=== PATIENT | male | born 1990 | race Caucasian/White ===

== ENCOUNTER 2021-11-26 00:20 | Emergency (ER) | payer MEDICAID ==
[~2021-11-26] VITALS: Ht 175.3 cm; Wt 106.6 kg
[2021-11-26 00:29] VITALS: BP 138/67
[2021-11-26] MEDS ORDERED: MORPHINE SULFATE 4 MG/ML SYR IM ONE (00:35)
[2021-11-26] MEDS ORDERED: KETOROLAC 60 MG/2 ML VIAL IM ONE (00:35)
[2021-11-26] MEDS ORDERED: ALLO100T21 PO (01:44)
[2021-11-26] MEDS ORDERED: COLC-30 PO (01:44)
[2021-11-26] MEDS ORDERED: NAPR-54 PO (01:44)
--- NOTE | 2021-11-26 01:52 | NUR ---
Patient cleared for dc with ED MD, kevin watkins and stable on DC. DC instructions given by MD, verbalizes understanding.
[2021-11-26 02:01] VITALS: BP 146/72
--- NOTE | 2021-11-26 02:02 | NUR ---
Patient discharged with v/s stable. Written and verbal after care instructions given and explained. Patient verbalized understanding. Ambulatory with steady gait. All questions addressed prior to discharge. Advised to follow up with PMD.
== END 2021-11-26 02:02 | disposition home or self-care (01) ==
LOC: MED 00:20
DX: M10.9 Gout, unspecified (principal); M79.671 Pain in right foot; Z79.899 Other long term (current) drug therapy
CPT/HCPCS: 96372; 99284; J1885; J2270